=== PATIENT | female | born 1955 | race Caucasian/White ===

== ENCOUNTER → 2016-07-20 | Outpatient (CLI) | payer BC ==
--- NOTE | 2016-07-20 15:23 | REPMRS ---
Patient History The patient states she had a clinical breast exam in 07/2016. Patient is postmenopausal. Family history of colorectal cancer in mother, breast cancer in maternal aunt, and breast cancer in 2 paternal aunts at age 50 or over. Digital Woman Screen Mammo: July 20, 2016 - Exam #: [id number] Bilateral CC and MLO view(s) were taken. Technologist: Sandra Pichardo, Technologist Prior study comparison: June 10, 2014, digital woman screen mammo performed at [facility]. June 11, 2013, digital woman screen mammo performed at [facility] [place]. FINDINGS: There are scattered fibroglandular densities. There has been no change in the appearance of the mammogram from the prior studies. There is a mild amount of residual fibroglandular tissue which is fairly symmetric. There is no interval development of dominant mass, architectural distortion, or clustered microcalcification suggestive of malignancy. ASSESSMENT: BI-RADS/ACR category 1 mammogram. Negative. Recommendation Routine screening mammogram in 1 year (for women over age 40). This mammogram was interpreted with the aid of an FDA-approved computer-aided dectection system. Electronically Signed By: Jasbir Leblanc MD 07/20/16 [id number]
== END ==
LOC: M WHC 13:57
PROVIDERS: ATTEND Nurse Practitioner Women's Health
DX: Z12.31 Encounter for screening mammogram for malignant neoplasm of breast (principal); Z78.0 Asymptomatic menopausal state; Z80.3 Family history of malignant neoplasm of breast

== ENCOUNTER → 2019-07-20 | Outpatient (CLI) | payer MEDICARE, BC ==
--- NOTE | 2019-07-20 12:42 | REPMRS ---
Patient History The patient states she had a clinical breast exam in July 2019. Family history of breast cancer in maternal aunt, breast cancer at age 50 or over in paternal aunt, breast cancer at age 50 or over in paternal aunt, colorectal cancer in mother. Digital Woman Screen Mammo: July 20, 2019 - Exam #: [id number] Bilateral CC and MLO view(s) were taken. Technologist: Rosa Mike, Technologist Prior study comparison: July 20, 2016, digital woman screen mammo performed at [facility]. June 10, 2014, digital woman screen mammo performed at [facility]. June 11, 2013, digital woman screen mammo performed at [facility]. FINDINGS: There are scattered fibroglandular densities. There is a stable nodule in the anterior third of the left breast laterally unchanged from multiple prior studies. There has been no change in the appearance of the mammogram from the prior studies. There is a mild amount of scattered fibroglandular density which is fairly symmetric. There is no interval development of dominant mass, architectural distortion, or grouped microcalcification suggestive of malignancy. 3-D tomosynthesis shows no additional findings. Assessment: BI-RADS/ACR category 2 mammogram. Benign Findings. Recommendation Routine screening mammogram of both breasts in 1 year (for women over age 40). This patient's Lifetime Breast Cancer Risk is estimated at 11.0 %. This mammogram was interpreted with the aid of an FDA-approved computer-aided dectection system. Electronically Signed By: Darius Reyes MD 07/20/19 [id number]
== END ==
LOC: M WHC 11:52
PROVIDERS: ATTEND Nurse Practitioner Family
DX: Z01.419 Encounter for gynecological examination (general) (routine) without abnormal findings (principal); Z12.31 Encounter for screening mammogram for malignant neoplasm of breast; Z80.0 Family history of malignant neoplasm of digestive organs; N63.20 Unspecified lump in the left breast, unspecified quadrant
CPT/HCPCS: 77063; 77067; G0101; G0123

== ENCOUNTER → 2019-07-20 | Outpatient (REF) | payer MEDICARE, BC | LOC: M SFHCWAGY 17:02 | PROVIDERS: ATTEND Nurse Practitioner Family | DX: Z12.4 Encounter for screening for malignant neoplasm of cervix (principal); N95.2 Postmenopausal atrophic vaginitis ==

== ENCOUNTER → 2020-07-25 | Outpatient (CLI) | payer MEDICARE, BC ==
--- NOTE | 2020-07-25 12:08 | REPMRS ---
Patient History The patient states she had a clinical breast exam in 07/2020 Family history of breast cancer in maternal aunt, breast cancer at age 50 or over in paternal aunt, breast cancer at age 50 or over in paternal aunt, colorectal cancer in mother. Digital Woman Screen Mammo: July 25, 2020 - Exam #: [id number] Bilateral CC and MLO view(s) were taken. Technologist: Deyanira Yancey, Technologist Prior study comparison: July 20, 2019, bilateral digital woman screen mammo performed at [facility]. July 20, 2016, digital woman screen mammo performed at [facility]. June 10, 2014, digital woman screen mammo performed at [facility]. FINDINGS: There are scattered fibroglandular densities. The Volpara volumetric breast density category is:B. There has been no change in the appearance of the mammogram from the prior studies. There is a mild amount of scattered fibroglandular density which is fairly symmetric. There is no interval development of dominant mass, architectural distortion, or grouped microcalcification suggestive of malignancy. 3-D tomosynthesis shows no additional findings. Assessment: BI-RADS/ACR category 1 mammogram. Negative Mammogram. Recommendation Routine screening mammogram of both breasts in 1 year (for women over age 40). This patient's [facility] Lifetime Breast Cancer Risk is estimated at 10.4 %. This mammogram was interpreted with the aid of an FDA-approved computer-aided dectection system. Electronically Signed By: Darius Reyes MD 07/25/20 [id number]
--- NOTE | 2020-07-25 12:47 | DEXAMM ---
INDICATION: Z78.0 ASYMPTOMATIC MENOPAUSAL STATE. COMPARISON: Comparison is made with prior study from February 23, 2009 and December 25, 2006.. TECHNIQUE: Bone density was measured using dual-energy x-ray absorptionmetry (DEXA). FINDINGS: AP SPINE L1-L4 BMD 1.138 g/cm2 Young Adult T-Score -0.5 Age Matched Z-Score 1.1. LT FEMUR, TOTAL BMD 0.880 g/cm2 Young Adult T-Score -1.0 Age Matched Z-Score 0.2. LT NECK BMD 0.801 g/cm2 Young Adult T-Score -1.7 Age Matched Z-Score -0.2. RT FEMUR, TOTAL BMD 0.860 g/cm2 Young Adult T-Score -1.2 Age Matched Z-Score 0.1. RT NECK BMD 0.798 g/cm2 Young Adult T-Score -1.7 Age Matched Z-Score -0.2. IMPRESSION: There is normal bone density of the spine. There is low bone density of the left hip. There is low bone density of the right hip. The density of the spine has increased 0.9% since the initial exam on December 25, 2006. The density of the spine decreased 1.5% since most recent exam on February 23, 2009. The density of the left hip has decreased 2.4% since initial exam on December 25, 2006. The density of the left hip has decreased 2.1% since most recent exam on February 23, 2009. The density of the right hip has decreased 0.2% since the initial exam on December 25, 2006. The density of the right hip has decreased 1.3% since the most recent exam on February 23, 2009. FOLLOW-UP: Recommendation for the next bone density exam: 2 years. <Electronically signed by Darius Reyes > 07/25/20 [id number]
== END ==
LOC: M WHC 10:39
PROVIDERS: ATTEND Nurse Practitioner Family
DX: Z01.419 Encounter for gynecological examination (general) (routine) without abnormal findings (principal); Z12.31 Encounter for screening mammogram for malignant neoplasm of breast; Z78.0 Asymptomatic menopausal state; Z80.0 Family history of malignant neoplasm of digestive organs
CPT/HCPCS: 77063; 77067; 77080; G0101

== ENCOUNTER → 2022-08-15 | Outpatient (CLI) | payer MEDICARE, BC | LOC: M WHC 09:15 | PROVIDERS: ATTEND Nurse Practitioner Family | DX: Z12.31 Encounter for screening mammogram for malignant neoplasm of breast (principal); Z13.820 Encounter for screening for osteoporosis ==

== ENCOUNTER → 2023-09-25 | Outpatient (CLI) | payer MEDICARE | LOC: M WHC 10:26 | PROVIDERS: ATTEND Nurse Practitioner Family | DX: Z12.31 Encounter for screening mammogram for malignant neoplasm of breast (principal) ==